=== PATIENT | female | born 1985 | race Caucasian/White ===

== ENCOUNTER 2018-06-27 05:40 | Outpatient (CLI) | payer SELFPAY ==
[2018-06-27 06:07] LABS: Mucous, Urine 0 SEEN /hpf (<or=2+)
[2018-06-27 06:13] VITALS: BMI 38.5
[2018-06-27 06:56] LABS: Color, Urine Yellow (Yellow); Glucose, Dipstick Normal (Normal); Ketone-Dipstick 50 mg/dl (Negative); Leukocyte Esterase-Dipstick 25 /ul (Negative); Nitrite-Dipstick Negative (Negative); Occult Blood-Urine 150 /ul (Negative); Protein-Dipstick Negative (Negative); Specific Gravity, Urine 1.015 (1.002-1.030); Urine Bilirubin Dipstick Negative (Negative); Urine Clarity Sl. Cloudy (Clear); Urine Urobilinogen Normal (Normal)
[2018-06-27 06:57] LABS: Bacteria 3+ /hpf (None Seen); Red Blood Cells-Urine 5-10 SEEN /hpf (0-5); Squamous Epithelial Cells - UA 0-5 SEEN /hpf (5-10); White Blood Cells 0-5 SEEN /hpf (0-5)
[2018-06-27] MEDS: Lactated Ringers 500 ML 999 ML IV (07:20)
[2018-06-27] MEDS: 0.9% Saline Lock 10 ML Syringe IV ×3 (07:33→08:13)
[2018-06-27] MEDS: proMETHazine 25 MG/ML Syringe 12.5 MG IV ×2 (07:33→17:26)
[2018-06-27] MEDS: HYDROmorphone 1 MG/ML Syringe IV ×3 (07:33→17:26)
[2018-06-27] MEDS: Ceftriaxone 1 GM/50 ML BAG IV (07:47)
[2018-06-27 09:42] LABS: Absolute Lymphocyte Count 0.41 X10^3/ul (0.83-4.51); Basophil# 0.01 X10^3/uL; Basophil% 0.1 % (0-1); Differential Indicated SCAN CRITERIA MET; Hematocrit 35.7 % (37-47); Hemoglobin 11.6 g/dl (12.0-15.0); Lymphocyte # 0.41 X10^3/ul (4.0); Lymphocyte % 3.9 % (19-41); Mean Corp Hgb Conc 32.5 g/gl (32-36); Mean Corpuscular Hgb 29.4 pg (27.0-32.0); Mean Corpuscular Volume 90.6 fL (81-99); Mean Platelet Vol. 9.5 fl (6.2-12.0); Monocyte# 0.06 X10^3/uL; Monocyte% 0.6 % (0-10); Neutrophil # 10.03 X10^3/uL (2.7-7.7); Neutrophil % 95.2 % (47-70); POSITIVE COUNT NO; POSITIVE DIFFERENTIAL YES; POSITIVE MORPHOLOGY NO; Platelet Count 255 K/mm3 (150-450); RBC Distribution Width CV 12.9 % (11.6-14.6); RBC Distribution Width SD 42.3 fl (35.1-43.9); Red Blood Count 3.94 M/mm3 (4.2-5.4); White Blood Count 10.5 K/mm3 (4.4-11.0)
[2018-06-27 10:00] LABS: Differential Comment SCANNED
[2018-06-27 10:46] LABS: ALB/GLOB Ratio 0.7 RATIO (0.9-2.4); AST(SGOT) 14 U/L (15-37); Alanine Aminotransfer ALT/SGPT 19 U/L (13-56); Alkaline Phosphatase 95 U/L (45-117); Anion Gap 9 (5-15); BUN 7 mg/dL (7-18); BUN/Creat Ratio 12.8 RATIO (10-20); Calcium,Total 10.2 mg/dL (8.5-10.1); Chloride 108 mmol/L (98-107); Creatinine, Serum 0.55 mg/dL (0.55-1.02); EST Glomerular Filtration Rate 138 mL/min (>60); Est Glom Filt Rate - Afr Amer 167 mL/min (>60); Estimated Creatinine Clearance 129.15 ml/min; Globulin 4.4 g/dL (2.2-4.2); Glucose 104 mg/dL (74-106); Potassium 3.5 mmol/L (3.5-5.1); Protein, Total 7.4 g/dL (6.4-8.2); Sodium Level 139 mmol/L (136-145)
--- NOTE | 2018-06-27 11:11 | OB.TRI.NOTE ---
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 pt reports no fever or chills. pt reports last week had blood in urine noted by robotic maintenance technician but was not treated for UTI at that time. pt reports is prone to UTIs pt denies h/o Kidney stones previously. Pt reports some dysuria but nothing significant at this time. pt reports pain 10/10 Allergies No Known Allergies Allergy (Verified 06/27/18 06:12) Laboratory Studies: Laboratory Tests 06/27/18 06/27/18 06/27/18 Range/Units 09:30 09:30 05:40 WBC 10.5 (4.4-11.0) K/mm3 RBC 3.94 L (4.2-5.4) M/mm3 Hgb 11.6 L (12.0-15.0) g/dl Hct 35.7 L (37-47) % MCV 90.6 (81-99) fL MCH 29.4 (27.0-32.0) pg MCHC 32.5 (32-36) g/gl RDW 12.9 (11.6-14.6) % RDW Differential 42.3 (35.1-43.9) fl Plt Count 255 (150-450) K/mm3 MPV 9.5 (6.2-12.0) fl Immature Gran % (Auto) 0.200 (0.0-0.9) % Neut % (Auto) 95.2 H (47-70) % Lymph % (Auto) 3.9 L (19-41) % [place] % (Auto) 0.6 (0-10) % Eos % (Auto) 0.0 (0-5) % Baso % (Auto) 0.1 (0-1) % Absolute Neuts (auto) 10.0 H (2.0-7.7) X10^3/uL Absolute Lymphs (auto) 0.41 L (0.83-4.51) X10^3/ul Total Counted Not Reportable Differential Comment SCANNED Sodium 139 (136-145) mmol/L Potassium 3.5 (3.5-5.1) mmol/L Chloride 108 H (98-107) mmol/L Carbon Dioxide 22.0 (21.0-32.0) mmol/L Anion Gap 9 (5-15) BUN 7 (7-18) mg/dL Creatinine 0.55 (0.55-1.02) mg/dL Estim Creat Clear Calc 129.15 ml/min Est GFR (MDRD) Af Amer 167 (>60) mL/min Est GFR (MDRD) Non-Af 138 (>60) mL/min BUN/Creatinine Ratio 12.8 (10-20) RATIO Glucose 104 (74-106) mg/dL Calcium 10.2 H (8.5-10.1) mg/dL Total Bilirubin 0.40 (0.20-1.00) mg/dL AST 14 L (15-37) U/L ALT 19 (13-56) U/L Alkaline Phosphatase 95 (45-117) U/L Total Protein 7.4 (6.4-8.2) g/dL Albumin 3.0 L (3.2-5.0) g/dL Globulin 4.4 H (2.2-4.2) g/dL Albumin/Globulin Ratio 0.7 L (0.9-2.4) RATIO Urine Color Yellow (Yellow) Urine Clarity Sl. Cloudy (Clear) Urine pH 7.0 (5.0 - 8.0) Ur Specific [place] 1.015 (1.002-1.030) Urine Protein Negative (Negative) mg/dl Urine Glucose (UA) Normal (Normal) mg/dl Urine Ketones 50 H (Negative) mg/dl Urine Occult Blood 150 H (Negative) /ul Urine Nitrite Negative (Negative) Urine Bilirubin Negative (Negative) mg/dL Urine Urobilinogen Normal (Normal) mg/dl Ur Leukocyte Esterase 25 H (Negative) /ul Urine RBC 5-10 SEEN (0-5) /hpf Urine WBC 0-5 SEEN (0-5) /hpf Ur Squamous Epith Cells 0-5 SEEN (5-10) /hpf Urine Bacteria 3+ (None Seen) /hpf Urine Mucus 0 SEEN (<or=2+) /hpf Review of Systems Constitutional: Denies: Anorexia, Chills, Fever Cardiovascular: Denies: Chest Pain Respiratory: Denies: Cough, Shortness of Breath Gastrointestinal: Reports: Vomiting - intermittent vomiting. Denies: Abdominal Pain, Nausea Genitourinary: Reports: Dysuria Musculoskeletal: Reports: Back Pain, - - left flank and back pain Physical Exam General: Alert, Oriented x3 Abdomen: Soft, Non Tender, Gravid, - - ++ CVA tenderness on left Neurological: Cranial nerves II-XII grossly intact Estimated gestational size: Appropriate for gestational size Presentation: Unable to assess NST - FHR Rate Baby A Baseline: 140s Accelerations:: None Impression/Plan 32yo @ 27 wks with likely Nephrolithiasis vs Pyelonephritis 1) labs wnl - No Elevated WBC and no fever- this is likely not pyelonephritis 2) IVF 3) Strain urine 4) pain meds 5) Rocephin x 1 given 6) will monitor and likely dc home later today.
[2018-06-27] MEDS: Lactated Ringers 1,000 ML 200 ML IV ×2 (11:37→18:41)
[2018-06-28] MEDS: Lactated Ringers 1,000 ML 200 ML IV ×2 (00:23→05:11)
[2018-06-28] MEDS: proMETHazine 25 MG/ML Syringe 12.5 MG IV ×2 (01:37→09:30)
[2018-06-28] MEDS: 0.9% Saline Lock 10 ML Syringe IV (01:39)
[2018-06-28] MEDS: HYDROmorphone 1 MG/ML Syringe IV ×2 (01:39→09:34)
[2018-06-28 05:39] LABS: Absolute Lymphocyte Count 0.98 X10^3/ul (0.83-4.51); Absolute Neutrophil Count 10.7 X10^3/uL (2.0-7.7); Basophil# 0.01 X10^3/uL; Basophil% 0.1 % (0-1); Eosinophil# 0.04 X10^3/uL; Eosinophils% 0.3 % (0-5); Hematocrit 28.8 % (37-47); Hemoglobin 9.3 g/dl (12.0-15.0); Lymphocyte # 0.98 X10^3/ul (4.0); Lymphocyte % 7.8 % (19-41); Mean Corp Hgb Conc 32.3 g/gl (32-36); Mean Corpuscular Hgb 29.7 pg (27.0-32.0); Mean Platelet Vol. 9.7 fl (6.2-12.0); Monocyte# 0.86 X10^3/uL; Monocyte% 6.8 % (0-10); Neutrophil # 10.71 X10^3/uL (2.7-7.7); Neutrophil % 84.8 % (47-70); Platelet Count 229 K/mm3 (150-450); RBC Distribution Width CV 13.3 % (11.6-14.6); RBC Distribution Width SD 43.5 fl (35.1-43.9); Red Blood Count 3.13 M/mm3 (4.2-5.4); White Blood Count 12.6 K/mm3 (4.4-11.0)
[2018-06-28 05:59] LABS: POSITIVE COUNT NO; POSITIVE DIFFERENTIAL NO; POSITIVE MORPHOLOGY NO
--- NOTE | 2018-06-28 08:45 | PN.OBGYN_ITS ---
Subjective: pt seen at bedside, up to chair- states she is feeling better- not requiring as much pain medication at this time. pt reports pain on left side is about 1/10 now. pt reports urine appears to be a little more blood tinged. - Physical Exam General: Alert, Oriented x3 Neurological: Cranial nerves II-XII grossly intact Weight: 101.9 kg Body Mass Index (BMI) 38.5 Intake and Output for Last 24 Hours 06/26/18 06/27/18 06/28/18 23:59 23:59 23:59 Intake Total 2371 / 2371 1927 / 1927 Output Total 825 / 825 740 / 740 Balance 1546 / 1546 1187 / 1187 Laboratory Tests Past 24 Hrs 06/27/18 06/27/18 06/28/18 09:30 09:30 05:20 WBC 10.5 12.6 H RBC 3.94 L 3.13 L Hgb 11.6 L 9.3 L Hct 35.7 L 28.8 L MCV 90.6 92.0 MCH 29.4 29.7 MCHC 32.5 32.3 RDW 12.9 13.3 RDW Differential 42.3 43.5 Plt Count 255 229 MPV 9.5 9.7 Immature Gran % (Auto) 0.200 0.200 Neut % (Auto) 95.2 H 84.8 H Lymph % (Auto) 3.9 L 7.8 L [place] % (Auto) 0.6 6.8 Eos % (Auto) 0.0 0.3 Baso % (Auto) 0.1 0.1 Absolute Neuts (auto) 10.0 H 10.7 H Absolute Lymphs (auto) 0.41 L 0.98 Total Counted Not Reportable Not Reportable Differential Comment SCANNED Sodium 139 Potassium 3.5 Chloride 108 H Carbon Dioxide 22.0 Anion Gap 9 BUN 7 Creatinine 0.55 Estim Creat Clear Calc 129.15 Est GFR (MDRD) Af Amer 167 Est GFR (MDRD) Non-Af 138 BUN/Creatinine Ratio 12.8 Glucose 104 Calcium 10.2 H Total Bilirubin 0.40 AST 14 L ALT 19 Alkaline Phosphatase 95 Total Protein 7.4 Albumin 3.0 L Globulin 4.4 H Albumin/Globulin Ratio 0.7 L Assessment/Plan 32yo @ 27+ wks, Pyelo vs Nephrolithiasis 1) pt did have one febrile episode yesterday but WBC wnl- her shift was slightly elevated. i reviewed with patient and spouse that she is improving and has remained afebrile- plan to either stay for admission and receive one more dose IV abx or dc home with PO meds but will need follow up. Urine culture is pending at this time. 2) will change Rx to KEFLEX 500mg QID x 7 days 3) continued to strain urine
[2018-06-28] MEDS: Ceftriaxone 1 GM/50 ML BAG IV (08:49)
== END 2018-06-28 11:25 | disposition home or self-care (01) ==
LOC: WPOUT 05:50 → WP 05:52
PROVIDERS: Obstetrics & Gynecology; Family Provider Family Medicine; PCP Family Medicine; Referring Provider Obstetrics & Gynecology; Visit Provider Obstetrics & Gynecology
DX: O26.92 Pregnancy related conditions, unspecified, second trimester (principal); R10.9 Unspecified abdominal pain; O21.2 Late vomiting of pregnancy; M54.9 Dorsalgia, unspecified; R30.0 Dysuria; Z3A.27 27 weeks gestation of pregnancy
CPT/HCPCS: 96361 ×2; 96365; 96375; 96376 ×2; 36415; 59025; 59050; 80053; 81001; 85025; 87086; 87088; 87186; 99218; J7120; A4216; G0378